=== PATIENT | male | born 1990 | race Caucasian/White ===

== ENCOUNTER 2016-05-25 16:31 | Emergency (ER) | payer SELFPAY ==
[2016-05-25 16:54] VITALS: RESP 18
--- NOTE | 2016-05-25 17:10 | EDPHY ---
H & P Time Seen by Provider: 05/25/16 16:49 HPI/ROS: CHIEF COMPLAINT: Bilateral hand abrasions HISTORY OF PRESENT ILLNESS: Patient is a 25-year-old male who states "I think my hands are infected." Patient states that he crashed on his long board a few days ago. He sustained abrasions on both of his hands. He states he was able to move his hands without any pain or discomfort. However, over the past day or 2 he has noticed increased redness surrounding the wounds. He was worried that he had an infection. Patient states he also has a bump on the left side of his cheek. He has no fevers or chills. REVIEW OF SYSTEMS: My complete review of systems is negative except as mentioned in the HPI. Past Medical/Surgical History: MRI say, meth abuse, anxiety, clavicle surgery Social history: Patient has a history of using methamphetamine. He denies drug or alcohol use recently Smoking Status: Current every day smoker Physical Exam: GENERAL: Well-appearing, in no acute distress, alert. HEAD: No evidence of trauma. EYES: PERRLA, EOMI, normal to inspection. ENT: Airway intact, dentition intact. Normal appearing. On the left cheek he has a small palpable pea-sized mass. This could be a lymph node. There is no surrounding erythema or warmth. NECK: The trachea is midline. The C-spine is nontender. NEXUS criteria is negative (no midline tenderness, no distracting injury, no altered mental status , no recent alcohol use, no focal neurologic deficit). RESPIRATORY: Clear to auscultation bilaterally, no rales, rhonchi or wheezing. There is no crepitus or palpable rib fractures. CVS: Regular rate and rhythm, no rubs, murmurs, or gallops. ABDOMEN: Soft, nontender. Pelvis: Stable. Hips full range of motion. BACK: Normal to inspection, no spinal tenderness, no spinal step off, no notable bruising or abrasions. SKIN: Normal color, warm, dry. No pallor or diaphoresis. EXTREMITIES: On the patient's bilateral hands he has abrasions over the knuckles of the index through pinky finger. There is no bony tenderness palpation. He has good radio interference investigator with full range of motion. There is mild abrasion surrounding erythema. No streaking up the hand or arm.] NEURO/PSYCH: Alert and oriented x 3, GCS 15, normal mood and affect, normal motor sensory exam. Constitutional: Initial Vital Signs Temperature (C) 36.9 C 05/25/16 16:52 Heart Rate 80 05/25/16 16:52 Respiratory Rate 18 05/25/16 16:52 Blood Pressure 118/75 05/25/16 16:52 O2 Sat (%) 95 05/25/16 16:52 O2 Delivery Mode Room Air Allergies/Adverse Reactions: No Known Allergies Allergy (Verified 05/25/16 16:51) Home Medications: Medication Instructions Recorded Cephalexin [Keflex (*)] 500 mg PO QID 7 Days 05/25/16 Medical Decision Making ED Course/Re-evaluation: In the emergency department I discussed possible etiologies with the patient. I offered the patient x-rays of his hands bilaterally. He did not want any x- ray imaging. He was given Keflex for possible early cellulitis. He was given warnings. He will return with worsening symptoms. Differential Diagnosis: My differential includes but is not limited to cellulitis, abrasion, contusion, fracture, dislocation, lymphadenopathy, lymphoma, dental infection Departure - Departure Disposition: Home, Routine, Self-Care Clinical Impression: Hand abrasion Qualifiers: Encounter type: initial encounter Laterality: unspecified laterality Qualified Code(s): S60.519A - Abrasion of unspecified hand, initial encounter Condition: Good Instructions: Abrasion (ED), Cellulitis (ED) Additional Instructions: Return with increasing redness, pain, fever or any other concerns. Referrals: [facility],. [Clinic] - As per Instructions Prescriptions: Cephalexin [Keflex (*)] 500 mg PO QID 7 Days
[2016-05-25 17:29] VITALS: BP 118/71; PULSE 81; TEMP 98.6; O2SAT 96
== END 2016-05-25 17:32 | disposition home or self-care (01) ==
DX: S60.511A Abrasion of right hand, initial encounter (principal); S60.512A Abrasion of left hand, initial encounter; F17.200 Nicotine dependence, unspecified, uncomplicated; X58.XXXA Exposure to other specified factors, initial encounter; Y99.8 Other external cause status; Y93.51 Activity, roller skating (inline) and skateboarding

== ENCOUNTER 2016-06-15 08:17 | Emergency (ER) | payer SELFPAY ==
--- NOTE | 2016-06-15 08:08 | EDPHY ---
H & P Constitutional: Initial Vital Signs Temperature (C) 37 C 06/15/16 08:17 Heart Rate 81 06/15/16 08:17 Respiratory Rate 18 06/15/16 08:17 Blood Pressure 125/92 H 06/15/16 08:17 O2 Sat (%) 95 06/15/16 08:17 O2 Delivery Mode Room Air Allergies/Adverse Reactions: No Known Allergies Allergy (Verified 06/15/16 08:25) Home Medications: Medication Instructions Recorded Cephalexin [Keflex (*)] 500 mg PO QID 7 Days 05/25/16 Sulfamethox/Tmp 800/160 mg 1 tab PO BID #14 tab 06/15/16 [Bactrim Ds] Medical Decision Making ED Course/Re-evaluation: CHIEF COMPLAINT: Right foot swelling. HISTORY OF PRESENT ILLNESS: The patient is a 25 y/o male arriving via EMS complaining of acute onset swelling and pain to the dorsum of his right foot. He has a history of illicit drug abuse as well as recent cellulitis infection of his hands. Around 17:00 last night, about 16 hours ago, he developed acute redness and swelling along the top of his right foot. He thinks he was bitten by a spider. He denies any known allergies. He denies fever, shortness of breath , hives, or other symptoms. REVIEW OF SYSTEMS: A 10 point review of systems was performed and is negative with the exception of the elements mentioned in the history of present illness. PHYSICAL EXAM: HR, BP, O2 Sat, RR. Temp noted General Appearance: Alert, well hydrated, appropriate, and non-toxic appearing. Head: Atraumatic without scalp tenderness or obvious injury Respiratory: No respiratory distress. No wheezes Cardiovascular: Dorsalis pedis pulses intact. Good capillary refill all extremities. Gastrointestinal: Abdomen is soft, nontender, non-distended, no masses, no rebound, no guarding, no peritoneal signs. Musculoskeletal: Normal active ROM of all extremities, atraumatic. Erythema, swelling, tenderness and fluctuance to dorsum of right foot with some mild lymphangitis without evidence of abscess. Neurological: Alert, appropriate, and interactive. Nonfocal neuro exam. Skin: No rashes, good turgor, no nodules on palpation. Past medical history: Cellulitis Past surgical history: denies Family history: noncontributory Social history: Homeless. Methamphetamine abuse. Friend at bedside. Smoker. PCP at [facility] DIFFERENTIAL DIAGNOSIS: The differential diagnosis for the patient's foot pain and swelling included but was not limited to cellulitis, abscess, insect bite, allergic reaction, viral syndrome, and sepsis. MEDICAL DECISION MAKING: This is a homeless 25 y/o male with a history of IV drug abuse presenting with a 1-day history of a swollen, erythematous, and tender right foot. He was recently seen for cellulitis on both hands and is still taking Keflex for this. He denies systemic illness and is afebrile here. He has no evidence of abscess at this time, though he has potential to develop one. Plan for PO Bactrim and standard Tylenol/ibuprofen instructions for pain. He's been referred back to [facility] for follow up. Return precautions given. He is comfortable with this plan. - Data Points Medications Given: Discontinued Medications Diphenhydramine HCl (Benadryl) 50 mg PO EDNOW ONE Stop: 06/15/16 08:25 Last Admin: 06/15/16 08:37 Dose: 50 mg Famotidine (Pepcid) 40 mg PO EDNOW ONE Stop: 06/15/16 08:25 Last Admin: 06/15/16 08:38 Dose: 40 mg Prednisone (Prednisone) 60 mg PO EDNOW ONE Stop: 06/15/16 08:25 Last Admin: 06/15/16 08:38 Dose: 60 mg Trimethoprim/Sulfamethoxazole (Bactrim Ds) 1 ea PO EDNOW ONE PRN Reason: Protocol Stop: 06/15/16 08:26 Last Admin: 06/15/16 08:38 Dose: 1 ea Departure - Departure Disposition: Home, Routine, Self-Care Clinical Impression: Cellulitis Qualifiers: Site of cellulitis: extremity Site of cellulitis of extremity: lower extremity Laterality: right Qualified Code(s): L03.115 - Cellulitis of right lower limb Allergic reaction Qualifiers: Encounter type: initial encounter Qualified Code(s): T78.40XA - Allergy, unspecified, initial encounter Condition: Good Instructions: Sulfamethoxazole/Trimethoprim (By mouth), Cellulitis (ED), General Allergic Reaction (ED) Additional Instructions: 1. Discontinue the Keflex. 2. Start Bactrim and take as prescribed. Be sure to complete the entire prescription even if symptoms resolve. 3. Use Benadryl as directed on the packaging if needed for itching. 4. Follow up with [facility] for symptoms unimproved over the next week. 5. Return to the ED for difficulty breathing, dramatic increase in redness or swelling, uncontrollable fever, or other worsening of condition Referrals: Patient,NotPresent [Primary Care Provider] - As per Instructions [facility],. [Clinic] - As per Instructions Prescriptions: Sulfamethox/Tmp 800/160 mg [Bactrim Ds] 1 tab PO BID #14 tab Report Scribed for: Jordan Alvarado Report Scribed by: Tatiana Santos Date of Report: 06/15/16 Time of Report: 08:29
[~2016-06-15 08:17] MED LIST: SULFAMETHOX/TMP 800/160 MG 1 TAB PO SCH
[2016-06-15] MEDS ORDERED: FAMOTIDINE 20 MG TAB PO ONE (08:24)
[2016-06-15] MEDS ORDERED: predniSONE 20 MG TAB PO ONE (08:24)
[2016-06-15] MEDS ORDERED: diphenhydrAMINE 25 MG CAP PO ONE (08:24)
[2016-06-15] MEDS ORDERED: SULFAMETHOX/TMP 800/160 MG 1 TAB PO ONE (08:25)
[2016-06-15 08:28] VITALS: O2SAT 95
[2016-06-15 09:24] VITALS: BP 117/69; PULSE 70; RESP 16; TEMP 97.9
== END 2016-06-15 09:29 | disposition home or self-care (01) ==
LOC: EDUNIT#
DX: L03.115 Cellulitis of right lower limb (principal); T78.40XA Allergy, unspecified, initial encounter; F17.200 Nicotine dependence, unspecified, uncomplicated

== ENCOUNTER 2016-06-19 18:36 | Emergency (ER) | payer SELFPAY ==
[2016-06-19 18:42] VITALS: BP 118/66; PULSE 79; RESP 18; TEMP 98.1; O2SAT 95
--- NOTE | 2016-06-19 18:44 | EDPHY ---
H & P Stated Complaint: Right Foot Wound Source: Patient - Personal History Current Tetanus Diphtheria and Acellular Pertussis (TDAP): Yes - Medical/Surgical History Hx Asthma: No Hx Chronic Respiratory Disease: No Hx Diabetes: No Hx Cardiac Disease: No Hx Renal Disease: No Hx Cirrhosis: No Hx Alcoholism: No Hx HIV/AIDS: No Hx Splenectomy or Spleen Trauma: No Other PMH: MRSA 2013, CLAVICLE SURGERY, METH ABUSE, ANXIETY - Social History Smoking Status: Current every day smoker HPI/ROS: HPI CHIEF COMPLAINT: Right foot cellulitis, abscess HISTORY OF PRESENT ILLNESS: This patient very pleasant 25-year-old male significant past medical history for IV drug use, presents emergency room with swelling, redness to the dorsum of the right foot. Was seen here recent emergency room started on Bactrim Tylenol Motrin. The cellulitis he states is about the same over developed an abscess with induration or fluctuance over the dorsum of the foot. Requesting drainage. Denies IV drug use. He thinks he was bit by some insect. He is currently taking Bactrim. No systemic symptoms specifically no generalized weakness, fever, vomiting. Past Medical History: IV drug use, history MRSA infection Past Surgical History: No recent surgeries Social History: IV drug use, none recently Family History: Noncontributory ROS REVIEW OF SYSTEMS: A comprehensive 10 point review of systems is otherwise negative aside from elements mentioned in the history of present illness. Exam Constitutional appears well nontoxic triage nursing summary reviewed, vital signs reviewed, awake/alert. Eyes normal conjunctivae and sclera, EOMI, PERRLA. HENT normal inspection, atraumatic, moist mucus membranes, no epistaxis, neck supple/ no meningismus, no raccoon eyes. Respiratory clear to auscultation bilaterally, normal breath sounds, no respiratory distress, no wheezing. Cardiovascular no murmur, rate normal, regular rhythm, no murmur, no edema, distal pulses normal. Gastrointestinal soft, non-tender, no rebound, no guarding, normal bowel sounds, no distension, no pulsatile mass. Genitourinary no CVA tenderness. Musculoskeletal no midline vertebral tenderness, full range of motion, no calf swelling, no tenderness of extremities, no meningismus, good pulses, neurovascularly intact. Skin right dorsal foot over the head of the 1st metatarsal indurated area of fluctuance 3 cm x 3 cm surrounding erythema. Appears to be an abscess. No palpable cord up the leg or streaking. Good DP. Warm extremity. Does have sunburn around the knee that is not cellulitis. Neurologic awake, alert and oriented x 3, AAOx3, moves all 4 extremities equally, motor intact, sensory intact, CN II-XII intact, normal cerebellar, normal vision, normal speech. Psychiatric normal mood/affect. Heme/Lymph/Immune no lymphadenopathy. Differential Diagnosis: Includes but is not limited to in a particular order, MRSA infection, strep infection, cellulitis, now has abscess Medical Decision Making: Plan for this patient continue Bactrim, warm compresses 3 to 5 times a day, Tylenol Motrin for pain control. I and D here in the emergency room. Close follow-up return emergency room for 24-48 are recheck. He understands. Re-evaluation: Patient an I and D by Fazal LEIGH, Please see his I and D note. 1936: I do recommend this patient does warm compresses 3 to 5 times a day. I also recommend he returns to the emergency room 24 to 48 for recheck however return emergency room sooner if he develops fever, spreading of redness, worsening pain or swelling. He understands. Warm compresses, recommend continuing Bactrim antibiotic. He understands. (Macario Posada) Constitutional: Initial Vital Signs Temperature (C) 36.7 C 06/19/16 18:40 Heart Rate 79 06/19/16 18:40 Respiratory Rate 18 06/19/16 18:40 Blood Pressure 118/66 06/19/16 18:40 O2 Sat (%) 95 06/19/16 18:40 O2 Delivery Mode Room Air Allergies/Adverse Reactions: No Known Allergies Allergy (Verified 06/15/16 08:25) Home Medications: Medication Instructions Recorded Cephalexin [Keflex (*)] 500 mg PO QID 7 Days 05/25/16 Sulfamethox/Tmp 800/160 mg 1 tab PO BID #14 tab 06/15/16 [Bactrim Ds] Medical Decision Making Procedures: My involvement care this patient is strictly for the procedure. Please see the note of Dr. Posada for all other aspects of care. PROCEDURE: Incision and Drainage Consent: Verbal Location: Right foot, dorsum Complexity: Moderate Anesthesia: Local, 1% lidocaine plain 3 mL, 0.25% Marcaine with epinephrine 3 mL Procedure description: After prepping the skin with Betadine, local anesthesia was injected. A 0.75 cm incision was made. Blunt dissection was used to break up all loculations. There was approximately 20 cc of purulent fluid expressed. The incision was irrigated with 50 cc of sterile saline. No packing was placed and the wound was left open. Patient tolerated the procedure well without complication. He remains neurovascular intact with brisk cap refill postprocedure. Expressed: 20 cc, purulent fluid Wound care: Routine as discussed (Fazal Dove) Departure - Departure Disposition: [facility] Clinical Impression: Abscess Cellulitis Qualifiers: Site of cellulitis: extremity Site of cellulitis of extremity: lower extremity Laterality: right Qualified Code(s): L03.115 - Cellulitis of right lower limb Condition: Good Instructions: Abscess (ED), Cellulitis (ED) Additional Instructions: 1. use warm compresses to your infected foot 3-4 times per day. Do not burn your skin. 2. Continue Bactrim antibiotic. 3. stay out of sunlight. 4. Return emergency room if you have worsening symptoms questions or concerns. Specifically return if he develops worsening redness, pain, swelling, fever. 5. Return emergency room in 12:48 p.m. forty eight hours for recheck. Referrals: NONE *PRIMARY CARE P,. [Primary Care Provider] - As per Instructions
== END 2016-06-19 19:35 | disposition home or self-care (01) ==
PROC: 0H9NXZZ Drainage of Left Foot Skin, External Approach (ICD-10-PCS; principal; 2016-06-19)
DX: L02.611 Cutaneous abscess of right foot (principal)

== ENCOUNTER 2016-12-16 19:53 | Emergency (ER) | payer SELFPAY ==
[2016-12-16 20:10] VITALS: BP 134/84; PULSE 87; RESP 20; TEMP 97.7; O2SAT 94
== END 2016-12-16 21:02 | disposition left against medical advice (07) ==
DX: Z53.21 Procedure and treatment not carried out due to patient leaving prior to being seen by health care provider (principal)

== ENCOUNTER 2017-01-13 12:29 | Inpatient (IN) | payer MEDICAID ==
[2017-01-13 13:17] LABS: PLATELET COUNT 198 10^3/uL (150-400)
[2017-01-13] MEDS ORDERED: IOPAMIDOL (ISOVUE-300) 100 ML BTL ONE (13:45)
--- NOTE | 2017-01-13 14:34 | EDPHY ---
H & P Smoking Status: Current every day smoker Time Seen by Provider: 01/13/17 12:53 HPI/ROS: CHIEF COMPLAINT: Submandibular swelling HISTORY OF PRESENT ILLNESS: 26-year-old male who is homeless presents to the emergency department by private vehicle with swelling to submandibular area for last for 5 days. He states that 2 months ago he had a laceration to his chin which was sutured. He never had the stitches removed and now presents with pain and swelling to submandibular area of his chin. He is having some odynophagia, and mild dysphagia. No fevers or chills. No other reported trauma. The patient has had frequent MRSA infections. The patient denies IV drug abuse. He denies any other chest pain or difficulty breathing. No abdominal pain or vomiting. REVIEW OF SYSTEMS: Constitutional: No fever, no chills. Eyes: No double or blurry vision. ENT: No sore throat. Respiratory: No cough, no shortness of breath. Cardiac: No chest pain. Gastrointestinal: No abdominal pain, vomiting or diarrhea. Genitourinary: No dysuria. Musculoskeletal: No neck or back pain. Skin: No rashes. Neurological: No headache. (Devika Spangler) Past Medical/Surgical History: MRSA, methamphetamine abuse, orthopedic injury (Crys,Devika M) Social History: Homeless (Devika Spangler) Physical Exam: General Appearance: Alert, no distress. Afebrile. Eyes: Pupils equal and round. Extraocular motions are all intact. ENT: Mouth: Mucous membranes moist. Trismus noted. Swelling noted the submandibular area which is tender to palpate. No obvious fluctuance. Palpable , firm left cervical lymphadenopathy is anterior. No respiratory distress. Respiratory: No wheezing, rhonchi, or rales, lungs are clear to auscultation. Cardiovascular: Regular rate and rhythm. Gastrointestinal: Abdomen is soft and nontender, no masses, no rebound or guarding, bowel sounds normal. Neurological: Alert and oriented x 3, cranial nerves II through XII grossly intact Skin: Warm and dry, no rashes. Healed sutured laceration to the anterior aspect of the chin. Ethilon sutures are still in place. Musculoskeletal: Nontender to palpate along the cervical, thoracic or lumbar spine. Neck is supple. Extremities: Full range of motion and no peripheral edema. Psychiatric: Patient is oriented X 3, there is no agitation. (Devika Spangler) Constitutional: Initial Vital Signs Temperature (C) 37.1 C 01/13/17 12:33 Heart Rate 78 01/13/17 12:33 Respiratory Rate 18 01/13/17 12:33 Blood Pressure 122/74 H 01/13/17 12:33 O2 Sat (%) 95 01/13/17 12:33 O2 Delivery Mode Room Air Allergies/Adverse Reactions: No Known Allergies Allergy (Verified 01/13/17 12:32) Home Medications: Medication Instructions Recorded NK [No Known Home Meds] 12/16/16 Medical Decision Making - Diagnostics Imaging: Discussed imaging studies w/ callisthenics instructor Radiologist ED Course/Re-evaluation: The sutures were easily removed. No purulent drainage from the wound. The laceration appears healed. The patient has significant submandibular swelling I was concerned about possible abscess. CT imaging with IV contrast soft tissue neck was ordered which revealed evidence of cellulitis with a large amount of inflamed lymph nodes. There is also 1 just to the left of the submandibular area which appears possibly necrotic measuring 18 mm x 13 mm. There is also another large lymph node posteriorly measuring 20 mm. There is no drainable abscess. The patient has normal laboratory studies. Because of the significant cellulitis and the patient is homeless, the patient will be treated with IV antibiotics in the emergency department. Patient will be admitted to the hospitalist. I also spoke with the on-call ENT, Dr. Brent Turcios and informed him of the findings on CT scan including the possible necrotic left anterior cervical lymph noted. Patient was also seen examined by Dr. Jeevan Christiansen, secondary supervising physician. (Devika Spangler) Differential Diagnosis: Including but not limited to cellulitis, abscess, lymphoma (Devika Spangler) Other Provider: PHYSICIAN DOCUMENTATION: The patient was evaluated and managed by the Physician Structural Steel Detailer and myself. I have reviewed the chart and agree with the findings and plan of care as documented. In addition, I examined the patient myself at 1435. History confirmed as sore throat jaw swelling for the last 4-5 days. Previous sutured laceration, sutures still in place. Physical findings as follows: Patient has some difficulty opening his mouth but does not have true trismus. Voice is slightly muffled. Normal range of motion of the neck. No stridor or drooling. CT shows necrotic lymph nodes and appearance of cellulitis per radiologist. Plan for admission and IV antibiotics, IV fluids, ENT consultation. I am the secondary supervising physician. (Jeevan Christiansen) - Data Points Laboratory Results: Laboratory Results 01/13/17 13:10 01/13/17 13:10 Medications Given: Acetaminophen (Tylenol) 500 - 1,000 mg PO Q6HRS PRN PRN Reason: Pain, Mild/Fever, Can Take PO Stop: 07/12/17 14:39 Last Admin: 01/14/17 02:52 Dose: 1,000 mg Sodium Chloride (Ns) 1,000 mls @ 150 mls/hr IV CONT CONNER Stop: 07/12/17 14:44 Last Admin: 01/13/17 17:29 Dose: 1,000 mls Vancomycin HCl 1.25 gm/ (Dextrose) 250 mls @ 166.67 mls/hr IV Q12H CONNER PRN Reason: Protocol Stop: 02/13/17 02:59 Last Admin: 01/14/17 02:39 Dose: 250 mls Oxycodone HCl (Oxycodone Ir) 5 - 10 mg PO Q3HRS PRN PRN Reason: Pain, Severe Able to Take PO Stop: 01/23/17 14:39 Last Admin: 01/14/17 02:51 Dose: 5 mg Discontinued Medications Vancomycin/Sodium Chloride (Vancomycin 1 Gm (Premix)) 250 mls @ 250 mls/hr IV EDNOW ONE PRN Reason: Protocol Stop: 01/13/17 15:38 Last Admin: 01/13/17 15:25 Dose: 250 mls Departure - Departure Disposition: [facility] Clinical Impression: Cellulitis of submandibular region Condition: Good
[2017-01-13] MEDS ORDERED: VANCOMYCIN HCL/NORMAL SALINE 250 ML IV ONE (14:39)
[2017-01-13] MEDS ORDERED: ONDANSETRON DISINTEGRATING 4 MG TAB PO PRN (14:40)
[2017-01-13] MEDS ORDERED: ONDANSETRON 4 MG/2 ML VIAL IVP PRN (14:40)
[2017-01-13] MEDS ORDERED: NS 1,000 ML IV SCH (14:45)
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
[2017-01-13] MEDS: oxyCODONE IR 5 MG TAB PO PRN (17:52)
[2017-01-13 17:58] LABS: HIV TYPE 1 AND 2 NEGATIVE (NEGATIVE)
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
[2017-01-14] MEDS: VANCOMYCIN 1.25 GM in D5W 250 ML IV SCH ×2 (02:39→15:20)
[2017-01-14] MEDS: oxyCODONE IR 5 MG TAB PO PRN ×2 (02:51→15:30)
[2017-01-14] MEDS: ACETAMINOPHEN 500 MG TAB PO PRN ×2 (02:52→15:30)
[2017-01-14 05:23] LABS: PLATELET COUNT 199 10^3/uL (150-400)
--- NOTE | 2017-01-14 14:30 | HOSPPROG ---
Hospitalist Progress Note Assessment/Plan: 26 yo M with PMH of MRSA infection pw acute neck pain, swelling found to be 2/2 submandibular cellulitis # submandibular cellulitis: personally reviewed CT neck and noted soft tissue swelling and LAD c/w cellulitis, no abscesses appreciated, no compromise of airway. Treating with vanc for now given hx of MRSA infection. Appreciate ID/ ENT consultation. Attempted to obtain records from prior hospitalization, but no records found, seems likely that patient has used pseudonym in the past as records with a similar presentation were found with same , same last name and different first name. # fever: in setting of above and likely related to same, wbc wnl, no other abnormalities in VS, cultures pending # homeless # dispo: IP status, will continue to monitor for now Patient new to my care. Subjective: no significant overnight events, patient somnolent but denies difficulty breathing or sob, denies trouble swallowing Objective: Vital Signs Temp Pulse Resp BP Pulse Ox 36.6 C 64 16 126/72 H 96 01/14/17 11:28 01/14/17 11:28 01/14/17 11:28 01/14/17 11:28 01/14/17 11:28 Laboratory Results 01/14/17 04:31 01/14/17 04:31 01/13/17 01/14/17 01/15/17 05:59 05:59 05:59 Intake Total 1300 Balance 1300 somnolent, arousable, disheveled anicteric op clear, firmness and swelling in submandibular region, area of scabbing on chin rrr no mrg cta b soft nt nd no ccew warm dry well perfused oriented ICD10 Worksheet Patient Problems: Problems Problem Status Onset Cellulitis of submandibular region Acute
--- NOTE | 2017-01-14 15:46 | PDMN ---
Medical Necessity Medical necessity: change to IP; los>2mn for eval and rx of submandibular cellulitis and fever; hx MRSA infection, homeless; per progress note and order 01/14/17
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
[2017-01-15] MEDS: VANCOMYCIN 1.25 GM in D5W 250 ML IV SCH (02:58)
[2017-01-15] MEDS: oxyCODONE IR 5 MG TAB PO PRN (03:07)
[2017-01-15 08:10] VITALS: BP 105/77; PULSE 70; RESP 18; TEMP 98.2; O2SAT 96
--- NOTE | 2017-01-15 09:28 | HOSPPROG ---
Hospitalist Progress Note Assessment/Plan: 26 yo M with PMH of MRSA infection pw acute neck pain, swelling found to be 2/2 submandibular cellulitis # submandibular cellulitis: personally reviewed CT neck and noted soft tissue swelling and LAD c/w cellulitis, no abscesses appreciated, no compromise of airway. Treating with vanc for now given hx of MRSA infection. Appreciate ID/ ENT consultation. continue vanc will discuss timing of dc w ID # fever: in setting of above and likely related to same, wbc wnl, no other abnormalities in VS, cultures pending afebrile > 24 hours # homeless # dispo: IP status, will continue to monitor for now Patient new to my care. Subjective: anxious for dc. ct images reviewed/interpreted by me. afebrile Objective: Vital Signs Temp Pulse Resp BP Pulse Ox 36.8 C 70 18 105/77 96 01/15/17 08:00 01/15/17 08:00 01/15/17 08:00 01/15/17 08:00 01/15/17 08:00 01/14/17 01/15/17 01/16/17 05:59 05:59 05:59 Intake Total 2200 Balance 2200 - Physical Exam Constitutional: no apparent distress, appears nourished Eyes: PERRL, anicteric sclera Ears, Nose, Mouth, Throat: moist mucous membranes, hearing normal, other ( submental area w old lac, no drainage, indurated tissue, no fluctuance, warmth or erythema) Cardiovascular: regular rate and rhythym, no murmur, rub, or gallop Respiratory: no respiratory distress, no rales or rhonchi Gastrointestinal: normoactive bowel sounds, soft, non-tender abdomen Genitourinary: no bladder fullness, No schuler in urethra Skin: warm, normal color Musculoskeletal: full muscle strength Neurologic: AAOx3 Psychiatric: interacting appropriately ICD10 Worksheet Patient Problems: Problems Problem Status Onset Cellulitis of submandibular region Acute
[2017-01-15] MEDS ORDERED: LORazepam 2 MG/ML INJ IVP ONE (14:33)
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
== END 2017-01-15 14:45 | disposition left against medical advice (07) | DRG 159 ==
LOC: F1N 16:43 → OBSVTOIN 01-14 15:17
PROVIDERS: ADMIT Internal Medicine; ATTEND Internal Medicine
DX: K12.2 Cellulitis and abscess of mouth (principal); R59.0 Localized enlarged lymph nodes; Z86.14 Personal history of Methicillin resistant Staphylococcus aureus infection; Z59.0 Homelessness; F41.9 Anxiety disorder, unspecified; F17.210 Nicotine dependence, cigarettes, uncomplicated
CPT/HCPCS: 82947-QW; 92610-GN; 96365; G0378; J3370; Q9967

== ENCOUNTER 2017-04-29 11:34 | Emergency (ER) | payer MEDICAID ==
[~2017-04-29 11:34] MED LIST changes: +CLINDAMYCIN 150 MG CAP PO SCH; -SULFAMETHOX/TMP 800/160 MG 1 TAB PO SCH
[2017-04-29 11:48] VITALS: RESP 18; TEMP 98.2
[2017-04-29 13:47] VITALS: BP 130/78; PULSE 67; O2SAT 97
--- NOTE | 2017-04-29 14:13 | EDPHY ---
H & P Stated Complaint: Skin lesions>1mo;past hx drug use but denies recent Time Seen by Provider: 04/29/17 12:11 - Personal History Current Tetanus Diphtheria and Acellular Pertussis (TDAP): Yes - Medical/Surgical History Hx Asthma: No Hx Chronic Respiratory Disease: No Hx Diabetes: No Hx Cardiac Disease: No Hx Renal Disease: No Hx Cirrhosis: No Hx Alcoholism: No Hx HIV/AIDS: No Hx Splenectomy or Spleen Trauma: No Other PMH: MRSA 2013, CLAVICLE SURGERY, METH ABUSE, ANXIETY, - Social History Smoking Status: Heavy smoker Constitutional: Initial Vital Signs Temperature (C) 36.8 C 04/29/17 11:40 Heart Rate 92 04/29/17 11:40 Respiratory Rate 18 04/29/17 11:40 Blood Pressure 117/82 H 04/29/17 11:40 O2 Sat (%) 94 04/29/17 11:40 O2 Delivery Mode Room Air Allergies/Adverse Reactions: No Known Allergies Allergy (Verified 04/29/17 11:45) Home Medications: Medication Instructions Recorded Clindamycin 150 mg PO Q8 #30 cap 04/29/17 Medical Decision Making ED Course/Re-evaluation: CHIEF COMPLAINT: Right arm skin lesions HISTORY OF PRESENT ILLNESS: This patient is a 26 year old male with history of MRSA and methamphetamine abuse presents with multiple skin lesions to his right arm. These are similar to his prior MRSA infections. He denies recent IV drug use. No fever vomiting, shortness of breath, weakness, or other associated symptoms. REVIEW OF SYSTEMS: A 10 point review of systems was performed and is negative with the exception of the elements mentioned in the history of present illness. PHYSICAL EXAM: HR, BP, O2 Sat, RR. Temp noted General Appearance: Alert, well hydrated, appropriate, and non-toxic appearing. Head: Atraumatic without scalp tenderness or obvious injury Eyes: Pupils equal, round, reactive to light and accommodation, EOMI, no trauma , no injection. Throat: Mucus membranes moist. Neck: Supple, nontender, no lymphadenopathy. Respiratory: No retractions, no distress, no wheezes, and no accessory muscle use. Lungs are clear to auscultation bilaterally. Cardiovascular: Regular rate and rhythm. Good capillary refill all extremities. Gastrointestinal: Abdomen is soft, nontender, non-distended. Musculoskeletal: Normal active ROM of all extremities, atraumatic. Neurological: Alert, appropriate, and interactive. Nonfocal neuro exam. Skin: Multiple small erythematous lesions/pustules to right arm. Good turgor, no nodules on palpation. Past medical history: MRSA. IV drug abuse. Anxiety. Past surgical history: Noncontributory Family history: Noncontributory. Social history: Transient. Lives in [place]. History of IV drug abuse. DIFFERENTIAL DIAGNOSIS: Includes but not limited to MRSA skin infection, cellulitis, folliculitis, insect bite, joint effusion, sepsis. MEDICAL DECISION MAKIN26 year old male with history of MRSA and methamphetamine abuse presents with multiple erythematous skin lesions/pustules to his right arm. The patient is not systemically ill. Vitals are stable. He is well-appearing and denies any further complaints. Exam is consistent with MRSA skin lesions. Plan to discharge home in good condition with prescription for Clindamycin. Return precautions discussed. The patient is comfortable with this plan. Departure - Departure Disposition: Home, Routine, Self-Care Clinical Impression: MRSA infection Condition: Good Instructions: MRSA (Methicillin-Resistant Staphylococcus Aureus) (ED) Additional Instructions: 1. Take Clindamycin as prescribed. It is important to finish your entire course of antibiotics even if you are feeling better. 2. Return to the emergency department for fever, vomiting, increased redness, drainage, or warmth around your arm infections, or other worsening of condition. Referrals: [facility],. [Clinic] - As per Instructions Prescriptions: Clindamycin 150 mg PO Q8 #30 cap Report Scribed for: Jordan Alvarado Report Scribed by: Lisa Rincon Date of Report: 04/29/17 Time of Report: 14:30
== END 2017-04-29 15:17 | disposition home or self-care (01) ==
DX: A49.02 Methicillin resistant Staphylococcus aureus infection, unspecified site (principal); F17.200 Nicotine dependence, unspecified, uncomplicated

== ENCOUNTER 2017-05-10 00:51 | Emergency (ER) | payer MEDICAID ==
[2017-05-10] MEDS ORDERED: CLINDAMYCIN 150 MG CAP PO ONE (00:56)
[2017-05-10 01:00] VITALS: BP 133/93; PULSE 90; RESP 16; TEMP 97.9; O2SAT 96
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
== END 2017-05-10 01:05 ==
DX: Z02.89 Encounter for other administrative examinations (principal); F17.200 Nicotine dependence, unspecified, uncomplicated

== ENCOUNTER 2017-12-20 13:08 | Emergency (ER) | payer MEDICAID ==
[2017-12-20 13:15] VITALS: BP 128/85
--- NOTE | 2017-12-20 13:56 | EDPHY ---
HPI/HX/ROS/PE/MDM Narrative: CHIEF COMPLAINT: Right shoulder and wrist pain HPI: The patient is a 27 y/o male with a history of surgery on the right clavicle complaining of right shoulder and right wrist pain. He is unsure when the pain started or what caused it. The pain in the wrist extends into the thumb. He denies any other associated symptoms. REVIEW OF SYSTEMS: Aside from elements discussed in the HPI, a comprehensive 10-point review of systems was reviewed and is negative. PMH: Right shoulder surgery SOCIAL HISTORY: Transient, medicaid patient, smoker PHYSICAL EXAM: General:Patient is alert, in no acute distress. ENT:Eyes are normal to inspection. ENT inspection normal. Neck: Normal inspection. Full range of motion. Respiratory:No respiratory distress. Breath sounds normal bilaterally. Cardiovascular: Regular rate and rhythm. Strong peripheral pulses. Normal cap refill. Abdomen:The abdomen is nontender to palpation. There are no peritoneal signs. There are normal bowel sounds. Back: Normal to inspection. No tenderness to palpation. Skin: Normal color. No rash. Warm and dry. Extremities: Normal appearance. Full range of motion. Neuro: Oriented x3. Normal motor function. Normal sensory function. ED Course: The patient presents with right clavicle and right wrist pain, onset unknown. X- rays ordered but the patient left AMA prior to the x-rays being taken. General Time Seen by Provider: 12/20/17 13:50 Initial Vital Signs: Initial Vital Signs Temperature (C) 36.7 C 12/20/17 13:12 Heart Rate 88 12/20/17 13:12 Respiratory Rate 18 12/20/17 13:12 Blood Pressure 128/85 H 12/20/17 13:12 O2 Sat (%) 99 12/20/17 13:12 O2 Delivery Mode Room Air Allergies/Adverse Reactions: No Known Allergies Allergy (Verified 09/26/17 13:32) Home Medications: Medication Instructions Recorded NK [No Known Home Meds] 10/16/17 Departure - Departure Disposition: Against Medical Advice Clinical Impression: Clavicle pain Wrist pain Qualifiers: Laterality: right Qualified Code(s): M25.531 - Pain in right wrist Condition: Fair Instructions: Wrist Injury (ED), Shoulder Pain (ED) Additional Instructions: 1. You are leaving against medical advise. You are at risk for serious complications. 2. Return to the emergency department if you would like care. Referrals: NONE *PRIMARY CARE P,. [Primary Care Provider] - As per Instructions [facility],. [Clinic] - As per Instructions Report Scribed for: Evangelist Grajeda Report Scribed by: Lashae Key Date of Report: 12/20/17 Time of Report: 13:57 Physician Review and Approval Statement: Portions of this note were transcribed by an ED scribe. I personally performed the history, physical exam, and medical decision making; and confirm the accuracy of the information in the transcribed note.
== END 2017-12-20 13:58 | disposition left against medical advice (07) ==
DX: M25.511 Pain in right shoulder (principal); M25.531 Pain in right wrist; F17.210 Nicotine dependence, cigarettes, uncomplicated; Z59.0 Homelessness

== ENCOUNTER 2018-05-13 21:49 | Emergency (ER) | payer MEDICAID ==
[2018-05-13 21:55] VITALS: BP 125/72
== END 2018-05-13 23:13 | disposition left against medical advice (07) ==
DX: Z53.21 Procedure and treatment not carried out due to patient leaving prior to being seen by health care provider (principal)